=== PATIENT | male | born 1985 | race Caucasian/White ===

== ENCOUNTER 2017-08-20 21:16 | Emergency (ER) | payer SELFPAY ==
[2017-08-20] MEDS ORDERED: CHLORHEXIDINE GLUCONATE 4 % 15 ML UD TOP ONE (21:28)
--- NOTE | 2017-08-20 22:10 | RAD ---
EXAM DESCRIPTION: Fingers,Left CLINICAL HISTORY: 31 years Male, dorsal lac digits 2 3 COMPARISON: None. FINDINGS: No fracture or dislocation. No opaque foreign body within the second and third digits. Post surgical changes of the third metacarpal with multiple screws seen. Cyst formation along the distal most third metacarpal cyst. A screw seen within the soft tissues adjacent to the third metacarpal. Multiple additional surgical clips seen. Soft tissues are unremarkable. IMPRESSION: No acute radiographic abnormality, specifically in the second and third digits. See above for findings regarding third metacarpal which are likely nonacute. Electronically signed by: Aniket Hudson MD 08/20/2017 10:09 PM CDT
[2017-08-20] MEDS ORDERED: LIDOCAINE 1% 10 ML VIAL INJ ONE (22:38)
[2017-08-20] MEDS ORDERED: NEOMYCIN-BACITRACIN-POLYMYXIN 0.9 GM UD TOP ONE (23:13)
[2017-08-20] MEDS ORDERED: SULFA/TRIMETH 800/160 (DS) TAB 1 EA TAB PO ONE (23:15)
--- NOTE | 2017-08-20 23:17 | ED.PDOC ---
History of Present Illness - General Chief Complaint: Laceration Stated Complaint: Laceration to index and middle finger of left hand Time Seen by Provider: 08/20/17 21:36 Source: patient Exam Limitations: no limitations - History of Present Illness Initial Comments: The patient is a 31-year-old male presenting to the emergency room secondary to 1 inch lacerations to the dorsal aspect of digits 2 and 3 on the left hand. This occurred because a lawnmower blade fell off of a shelf and hit his hand. Estimated blood loss in total is approximately 15 cc. He does appear to be neurovascularly preserved distally. Tendon functions appear to be preserved as well. The wound is soaked with saline and irrigated. Risk and benefits of repair explained to patient agrees to proceed. After the wound was cleaned, 5 simple sutures each were applied to each laceration for reapproximation. Suture use was 3-0 Ethilon. Lidocaine 1% without epinephrine was used 6 cc for local anesthetic. Patient tolerated procedure well. Timing/Duration: momentarily Severity: moderate Improving Factors: nothing Worsening Factors: nothing Associated Symptoms: denies symptoms Allergies/Adverse Reactions: Allergies Amoxicillin Allergy (Verified 08/20/17 21:40) Home Medications: Ambulatory Orders Sulfa/Trimeth 800/160 (Ds) Tab [Bactrim DS Tab] 1 ea PO BID #10 tab 08/20/17 Review of Systems - Review of Systems Constitutional: States: no symptoms reported EENTM: States: no symptoms reported Respiratory: States: no symptoms reported Cardiology: States: no symptoms reported Gastrointestinal/Abdominal: States: no symptoms reported Genitourinary: States: no symptoms reported Musculoskeletal: States: see HPI Skin: States: see HPI Neurological: States: no symptoms reported Endocrine: States: no symptoms reported All other Systems: No Change from Baseline Past Medical History (General) - Patient Medical History Hx Seizures: No Hx Stroke: No Hx Dementia: No Hx Asthma: No Hx of COPD: No Hx Cardiac Disorders: No Hx Congestive Heart Failure: No Hx Pacemaker: No Hx Hypertension: No Hx Thyroid Disease: No Hx Diabetes: No Hx Gastroesophageal Reflux: No Hx Renal Disease: No Hx of HIV: No Hx MRSA: No - Vaccination History Hx Tetanus, Diphtheria Vaccination: No Hx Influenza Vaccination: No Hx Pneumococcal Vaccination: No - Social History Hx Tobacco Use: Yes Family Medical History - Family History Mother Family History: Unknown Living Status: Still Living Physical Exam - Physical Exam General Appearance: Alert, No apparent distress Eye Exam: bilateral normal Ears, Nose, Throat: hearing grossly normal Respiratory: no respiratory distress, no accessory muscle use Cardiovascular/Chest: normal peripheral pulses, no edema Peripheral Pulses: radial,right: 2+, radial,left: 2+ Rectal Exam: deferred Extremity: normal range of motion, no pedal edema, normal capillary refill, other - see history of present illness 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 Comments: Vital Signs - 24 hr 08/20/17 21:35 Temperature 98.5 F Pulse Rate [ 112 H monitor] Respiratory 18 Rate Blood Pressure 139/82 [Left Arm] O2 Sat by Pulse 97 Oximetry Progress - Progress Progress: 08/20/17 23:18 the patient is a 31-year-old male presenting secondary to lacerations to the dorsal aspect of his second and third digit of his left hand due to a falling lawnmower blade. The wounds were cleaned and repaired with 3-0 Ethilon. Sutures need to come out in 10 days. He needs to try to not bend the fingers during that time to allow for healing and not pull the stitches out. He was given a dose of Bactrim here today. He'll be placed on Bactrim twice daily for the next 5 days. He does need to monitor for any infection. He can keep the wound covered with a Band-Aid and triple antibiotic ointment. ER warnings were given. Departure - Departure Clinical Impression: Accidental laceration Disposition: Discharge to Home or Self Care Condition: Fair Departure Forms: ED Discharge - Pt. Copy, Patient Portal Self Enrollment Instructions: DI for Laceration Repair, DI for Laceration Repair -- Simple Diet: regular diet Activity: increase activity as tolerated Prescriptions: Sulfa/Trimeth 800/160 (Ds) Tab [Bactrim DS Tab] 1 ea PO BID #10 tab Home Medications: Ambulatory Orders Sulfa/Trimeth 800/160 (Ds) Tab [Bactrim DS Tab] 1 ea PO BID #10 tab 08/20/17 Additional Instructions: the patient is a 31-year-old male presenting secondary to lacerations to the dorsal aspect of his second and third digit of his left hand due to a falling lawnmower blade. The wounds were cleaned and repaired with 3-0 Ethilon. Sutures need to come out in 10 days. He needs to try to not bend the fingers during that time to allow for healing and not pull the stitches out. He was given a dose of Bactrim here today. He'll be placed on Bactrim twice daily for the next 5 days. He does need to monitor for any infection. He can keep the wound covered with a Band-Aid and triple antibiotic ointment. ER warnings were given.
[2017-08-21 00:29] VITALS: BP 116/76; TEMP 98.7; O2SAT 98
== END 2017-08-20 23:36 | disposition home or self-care (01) ==
LOC: ER 21:16
DX: S61.211A Laceration without foreign body of left index finger without damage to nail, initial encounter (principal); S61.213A Laceration without foreign body of left middle finger without damage to nail, initial encounter; F17.200 Nicotine dependence, unspecified, uncomplicated; Z88.0 Allergy status to penicillin; W45.8XXA Other foreign body or object entering through skin, initial encounter